=== PATIENT | female | born 1965 | race Caucasian/White ===

== ENCOUNTER 2017-09-06 14:18 | Outpatient (CLI) | payer OTHER | END 2017-09-06 14:19 | disposition home or self-care (01) | LOC: BICMAMMO 14:18 | PROVIDERS: ATTEND Obstetrics & Gynecology | DX: Z12.31 Encounter for screening mammogram for malignant neoplasm of breast (principal) | CPT/HCPCS: 77063; 77067 ==

== ENCOUNTER 2018-01-03 08:58 | Outpatient (CLI) | payer OTHER | END 2018-01-03 08:59 | disposition home or self-care (01) | LOC: BICMAMMO 08:58 | PROVIDERS: ATTEND Internal Medicine Rheumatology | DX: M81.0 Age-related osteoporosis without current pathological fracture (principal); M85.859 Other specified disorders of bone density and structure, unspecified thigh | CPT/HCPCS: 71046; 77080 ==

== ENCOUNTER 2019-12-19 05:54 | Outpatient (CLI) | payer OTHER ==
[2019-12-19 14:52] LABS: #Basophils 0.1 thou/uL (0.0-0.2); #Eosinphils 0.1 thou/uL (0.0-0.7); #Lymphocytes 1.9 thou/uL (1.20-3.40); #Monocytes 0.3 thou/uL (0.11-0.59); #Neutrophils 3.5 thou/uL (1.40-6.50); %Eosinophils 1.5 % (0.0-10.0); %Lymphocytes 32.7 % (21.0-51.0); %Neutrophils 59.8 % (42.0-75.0); Hemoglobin 13.4 g/dL (12.0-16.0); Mean Corpuscular HGB CONC 32.5 g/dL (32.0-36.0); Mean Corpuscular Hemoglobin 31.3 pg (27.0-31.0); Mean Corpuscular Volume 96.2 fL (78.0-98.0); Mean Platelet Volume 8.3 fL (7.4-10.4); Platelet Count 212 thou/uL (130-400); RBC Distribution Width 11.2 % (11.5-14.5); Red Blood Cell (RBC) Count 4.29 mill/uL (4.20-5.40); White Blood Cell (WBC) Count 5.8 thou/uL (4.8-10.8)
[2019-12-19 14:57] LABS: BHCG - Serum Indeterminate (NEGATIVE); Pregs Control Background? CLEAR/WHITE (CLR/WHITE); Pregs Control Bar Appear? YES (CONTROL BAR)
[2019-12-20 12:15] LABS: SARS-CoV-2 MS2 Positive; SARS-CoV-2 N Gene Negative; SARS-CoV-2 S Gene Negative; SARS-CoV-2 orf1ab Negative
--- NOTE | 2019-12-22 10:17 | EKG ---
Test Reason : Blood Pressure : / mmHG Vent. Rate : 057 BPM Atrial Rate : 057 BPM P-R Int : 170 ms QRS Dur : 088 ms QT Int : 420 ms P-R-T Axes : 073 066 062 degrees QTc Int : 408 ms Sinus bradycardia Low voltage QRS Borderline ECG No previous ECGs available Confirmed by MARION CARDOZO (2) on 12/22/2019 10:17:31 AM Referred By: CHUCKIE Confirmed By:MARION CARDOZO
== END 2019-12-19 05:55 | disposition home or self-care (01) ==
LOC: LABBT 05:54
PROVIDERS: ATTEND Orthopaedic Surgery Hand Surgery
DX: Z01.818 Encounter for other preprocedural examination (principal); Z11.59 Encounter for screening for other viral diseases; G56.02 Carpal tunnel syndrome, left upper limb
CPT/HCPCS: 84703; 85025; 87635; 93005; 93010; U0003

== ENCOUNTER 2019-12-23 09:03 | Day surgery (SDC) | payer OTHER ==
[2019-12-16 10:35] VITALS: BMI 26.2
[2019-12-23] MEDS ORDERED: Scopolamine 1.5 mg/72 hour Patch ONE (10:46)
[2019-12-23] MEDS ORDERED: Dexamethasone 20 MG/5 ML VIAL ONE (12:59)
[2019-12-23] MEDS ORDERED: EPHEDRINE 25 MG/5 ML SYRINGE ONE (12:59)
[2019-12-23] MEDS ORDERED: Ondansetron PF 4 MG/2 ML Vial ONE (12:59)
[2019-12-23] MEDS ORDERED: Ketorolac Tromethamine 30 MG/ML VIAL ONE ×2 (12:59→16:38)
[2019-12-23] MEDS ORDERED: PROPOFOL 200 MG/20 ML VIAL ONE (12:59)
[2019-12-23] MEDS ORDERED: Fentanyl 100 MCG/2 ML VIAL ONE (14:07)
[2019-12-23] MEDS ORDERED: Midazolam HCl 2 mg/2 ml Vial ONE (14:07)
[2019-12-23] MEDS ORDERED: Sodium Chloride 0.9% 10 ML ONE (14:10)
[2019-12-23] MEDS ORDERED: Bacitracin Zinc Ointment 30 gm TUBE ONE (14:10)
[2019-12-23] MEDS ORDERED: Betamet Acet/Betamet Na Ph 30 MG/5 ML VIAL ONE (14:10)
--- NOTE | 2019-12-23 17:25 | OP ---
DATE OF PROCEDURE: 12/23/2019 PREOPERATIVE DIAGNOSIS: Left carpal tunnel syndrome. POSTOPERATIVE DIAGNOSIS: Left carpal tunnel syndrome. FINDINGS: Very tight transverse carpal ligament, especially the central 1/3 with early flattening of the median nerve within the carpal canal. No flexor tenosynovitis. PROCEDURE PERFORMED: Left carpal tunnel release. TOURNIQUET TIME: 14 minutes. ESTIMATED BLOOD LOSS: 5 mL. COMPLICATIONS: None. DESCRIPTION OF PROCEDURE: After successful propofol block, the patient then had the incision outlined as a 2-cm mini carpal tunnel incision, ending proximally, almost 8 mm distal to the volar wrist flexion crease and then starting at [place]'s cardinal line in line with this in the ring finger. We waited 8 minutes, inflated tourniquet after exsanguinated the limb to 250 mmHg pressure and given a total of 15% of Toradol without epinephrine block. We carried the incision through skin and subcutaneous tissue to identify the transverse carpal ligament. It was opened in its ulnar 1/3, avoiding the median nerve completely. We made the initial incision from the midportion distally and then from the midportion proximally using combination of [place] blade and tenotomy scissors. We made a complete release. The nerve was flattened over by 1 cm area with early hourglass formation in the sagittal plane. No erythema or stippling. We placed 5 mL of [place] over the area where the nerve most flattened, released the tourniquet, obtained hemostasis. We then closed the incision with interrupted 4-0 nylon in a mattress pattern with no evidence of anesthetic or operative complication. Final 5 mL of Marcaine was given татьяна-incisional once the wound was closed for a total of 20 mL of 0.5% Marcaine block. Job ID: [id number]
== END 2019-12-23 17:25 | disposition home or self-care (01) ==
LOC: SDC 09:03
PROVIDERS: ATTEND Orthopaedic Surgery Hand Surgery
PROC: 01N50ZZ Release Median Nerve, Open Approach (ICD-10-PCS; principal; 2019-12-23)
DX: G56.02 Carpal tunnel syndrome, left upper limb (principal); M65.331 Trigger finger, right middle finger; K50.90 Crohn's disease, unspecified, without complications; Z79.899 Other long term (current) drug therapy; Z88.5 Allergy status to narcotic agent
CPT/HCPCS: J0690; J0702; J1100; J1885; J2250; J2405; J2704; J3010; J3490

== ENCOUNTER 2019-12-27 00:31 | Emergency (ER) | payer OTHER | END 2019-12-27 01:30 | disposition home or self-care (01) | LOC: ERS 00:31 | DX: R22.1 Localized swelling, mass and lump, neck (principal); T40.4X5A Adverse effect of other synthetic narcotics, initial encounter | CPT/HCPCS: 99284 ==

== ENCOUNTER 2020-11-04 14:33 | Outpatient (CLI) | payer BC ==
[2020-11-04 16:21] LABS: #Eosinphils 0.1 10x3/uL (0.0-0.5); #Monocytes 0.3 10x3/uL (0.0-1.1); #Neutrophils 3.3 10x3/uL (1.5-8.4); %Basophils 0.5 % (0.0-2.0); %Eosinophils 1.8 % (0.0-6.0); %Lymphocytes 31.3 % (18.0-47.0); %Monocytes 5.6 % (0.0-10.0); %Neutrophils 60.4 % (40.0-75.0); Hemoglobin 12.5 g/dL (12.0-15.5); Mean Corpuscular Hemoglobin 30.8 pg (27.0-33.0); Mean Corpuscular Volume 96.3 fl (81.6-98.3); Mean Platelet Volume 10.2 fl (7.4-10.4); Platelet Count 270 10x3/uL (150-450); RBC Distribution Width 12.4 % (11.5-14.5); Red Blood Cell (RBC) Count 4.06 10x6/uL (3.90-5.03); White Blood Cell (WBC) Count 5.5 10x3/uL (3.5-10.5)
[2020-11-05 01:36] LABS: SARS-CoV-2 PCR by NAA Not Detected (NotDetected)
== END 2020-11-04 14:34 | disposition home or self-care (01) ==
LOC: LABBT 14:33
PROVIDERS: ATTEND Orthopaedic Surgery Hand Surgery
DX: Z01.812 Encounter for preprocedural laboratory examination (principal); M65.331 Trigger finger, right middle finger; Z20.822 Contact with and (suspected) exposure to COVID-19
CPT/HCPCS: 85025; 87635; U0003; U0005

== ENCOUNTER 2020-11-09 08:36 | Day surgery (SDC) | payer BC ==
[2020-11-05 16:34] VITALS: BMI 24.3
[2020-11-09] MEDS ORDERED: Bacitracin Zinc Ointment 30 gm TUBE ONE (10:22)
[2020-11-09] MEDS ORDERED: Midazolam HCl 2 mg/2 ml Vial ONE (11:22)
[2020-11-09] MEDS ORDERED: Propofol 1,000 MG/100 ML VIAL IV ONE (11:22)
[2020-11-09] MEDS ORDERED: Fentanyl 100 MCG/2 ML VIAL ONE (11:22)
[2020-11-09] MEDS ORDERED: Bupivacaine PF 0.5% 30 ML VIAL ONE (11:29)
[2020-11-09] MEDS ORDERED: Betamet Acet/Betamet Na Ph 30 MG/5 ML VIAL ONE (11:29)
[2020-11-09] MEDS ORDERED: ePHEDrine Sulfate 50 MG/10 ML VIAL ONE (11:43)
[2020-11-09] MEDS ORDERED: Ketorolac Tromethamine 30 MG/ML VIAL ONE (12:37)
== END 2020-11-09 13:55 | disposition home or self-care (01) ==
LOC: SDC 08:36
PROVIDERS: ATTEND Orthopaedic Surgery Hand Surgery
PROC: 0LN70ZZ Release Right Hand Tendon, Open Approach (ICD-10-PCS; principal; 2020-11-09)
DX: M65.331 Trigger finger, right middle finger (principal); M65.841 Other synovitis and tenosynovitis, right hand; E89.0 Postprocedural hypothyroidism; K50.90 Crohn's disease, unspecified, without complications; Z79.899 Other long term (current) drug therapy; Z88.5 Allergy status to narcotic agent
CPT/HCPCS: J0690; J0702; J1885; J2250; J2704; J3010; J3490; S0020

== ENCOUNTER 2023-04-27 14:56 | Outpatient (CLI) | payer BC | END 2023-04-27 14:57 | disposition home or self-care (01) | LOC: BICMAMMO 14:56 | PROVIDERS: ATTEND Internal Medicine Rheumatology | DX: M81.0 Age-related osteoporosis without current pathological fracture (principal); M85.851 Other specified disorders of bone density and structure, right thigh; M85.852 Other specified disorders of bone density and structure, left thigh | CPT/HCPCS: 77080 ==

== ENCOUNTER 2023-11-06 10:58 | Outpatient (CLI) | payer BC ==
[2023-11-06 11:57] LABS: #Basophils 0.04 10x3/uL (0.0-0.2); #Eosinphils 0.07 10x3/uL (0.0-0.5); #Monocytes 0.33 10x3/uL (0.0-1.1); #Neutrophils 2.75 10x3/uL (1.5-8.4); %Basophils 0.9 % (0.0-2.0); %Eosinophils 1.5 % (0.0-6.0); %Lymphocytes 29.3 % (18.0-47.0); %Monocytes 7.3 % (0.0-10.0); %Neutrophils 60.6 % (40.0-75.0); Hemoglobin 12.8 g/dL (12.0-15.5); Mean Corpuscular HGB CONC 32.8 g/dL (32.0-36.0); Mean Corpuscular Hemoglobin 31.2 pg (27.0-33.0); Mean Corpuscular Volume 95.1 fl (81.6-98.3); Mean Platelet Volume 9.6 fl (7.4-10.4); Platelet Count 228 10x3/uL (150-450); RBC Distribution Width 12.3 % (11.5-14.5); White Blood Cell (WBC) Count 4.5 10x3/uL (3.5-10.5)
== END 2023-11-06 10:59 | disposition home or self-care (01) ==
LOC: LABBT 10:58
PROVIDERS: ATTEND Orthopaedic Surgery Hand Surgery
DX: Z01.812 Encounter for preprocedural laboratory examination (principal); M65.332 Trigger finger, left middle finger
CPT/HCPCS: 85025

== ENCOUNTER 2023-11-09 11:00 | Day surgery (SDC) | payer BC ==
[2023-11-06 11:28] VITALS: BMI 23.9
[2023-11-09] MEDS ORDERED: Midazolam HCl 2 mg/2 ml Vial ONE (13:57)
[2023-11-09] MEDS ORDERED: CEFAZOLIN 2 GM VIAL ONE (14:02)
[2023-11-09] MEDS ORDERED: Sodium Chloride 0.9% 100 ML ONE (14:03)
[2023-11-09] MEDS ORDERED: Lidocaine 1% PF 5 ML VIAL ONE (14:18)
[2023-11-09] MEDS ORDERED: PROPOFOL 200 MG/20 ML VIAL ONE (14:18)
[2023-11-09] MEDS ORDERED: Ondansetron PF 4 MG/2 ML Vial ONE (14:18)
[2023-11-09] MEDS ORDERED: Dexamethasone 20 MG/5 ML VIAL ONE (14:18)
[2023-11-09] MEDS ORDERED: Ketorolac Tromethamine 30 MG (1 mL) VIAL ONE (15:23)
== END 2023-11-09 16:30 | disposition home or self-care (01) ==
LOC: SDC 11:00
PROVIDERS: ATTEND Orthopaedic Surgery Hand Surgery
DX: M65.332 Trigger finger, left middle finger (principal); Z88.5 Allergy status to narcotic agent; Z91.048 Other nonmedicinal substance allergy status; Z90.49 Acquired absence of other specified parts of digestive tract
CPT/HCPCS: A6223; J1885; J2250; J3490

== ENCOUNTER → 2023-11-09 | Day surgery (SDC) | payer BC ==
[~2023-11-09] MED LIST: Bacitracin Zinc Ointment 30 gm TUBE ONE; Bupivacaine PF 0.5% 30 ML VIAL ONE; Dexamethasone 4 mg/ml Vial ONE; Lidocaine 1% PF 5 ML VIAL ONE; Midazolam HCl 2 mg/2 ml Vial ONE; Ondansetron PF 4 MG/2 ML Vial ONE; PROPOFOL 40 ML ONE
== END ==
LOC: SDC 11:16
PROVIDERS: ATTEND Orthopaedic Surgery Hand Surgery
DX: M65.332 Trigger finger, left middle finger (principal); Z88.5 Allergy status to narcotic agent; Z91.048 Other nonmedicinal substance allergy status
CPT/HCPCS: A6223; J0665; J1100; J1885; J2250; J2405; J2704; J3490

== ENCOUNTER 2024-10-09 09:38 | Outpatient (CLI) | payer BC | END 2024-10-09 09:39 | disposition home or self-care (01) | LOC: BICCT 09:38 | PROVIDERS: ATTEND Internal Medicine Gastroenterology | DX: K50.80 Crohn's disease of both small and large intestine without complications (principal); R10.13 Epigastric pain; N28.9 Disorder of kidney and ureter, unspecified; K56.699 Other intestinal obstruction unspecified as to partial versus complete obstruction | CPT/HCPCS: 74177 ==